=== PATIENT | female | born 1940 | race Caucasian/White ===

== ENCOUNTER → 2016-03-30 | Outpatient (CLI) | payer OTHER ==
[~2016-03-30] MED LIST: ASCO500T3 PO; ASPCH81X PO; BIOT1CAP8 PO; BROM0.07 OPL; CALC500C70 PO; HYZ/10015 PO; MULT-506 PO; OMEG10007 PO; PRED1SUS3 OPL
== END | disposition home or self-care (01) ==
LOC: C.PAPS 09:45
PROVIDERS: ATTEND Obstetrics & Gynecology
DX: Z12.4 Encounter for screening for malignant neoplasm of cervix (principal)

== ENCOUNTER → 2016-05-30 | Day surgery (SDC) | payer OTHER ==
[2016-05-04 11:19] VITALS: Ht 162.6 cm; Wt 62.7 kg
[~2016-05-30] VITALS: Ht 162.6 cm; Wt 62.7 kg
[~2016-05-30] MED LIST changes: +500ML BSS 0.3ML EPI 1:1000PF IRRIG ONE; +ACETAMINOPHEN 325 MG TAB PO PRN; +AMVISC PLUS 0.8ML SYRINGE INT OCU ONE; +ATROPINE SULFATE 0.1 MG/ML 5ML SYR IV PRN; +BSS FLUSH ONE; +EpHEDrine SULFATE INJ 50 MG/ML AMP IV PRN; +EpINEphrine INJ 1MG/ML AMP 1 MG/ML AMP ONE; +LACTATED RINGER'S 1000ML 500 ML IV SCH; +LIDOCAINE 3.5% OPH GEL PER APPLICATION CHARGE ONE; +LIDOCAINE HCL 1% MPF 2 ML VIAL ONE; +MIDAZOLAM HCL 1 MG/ML 2ML VIAL ONE; +OCUCOAT 1 ML SOLN IO ONE; +PHENYLEPHRINE HCL 10% OP SOLN PER DROP CHARGE OPL SCH; +POVIDONE-IODINE OP SOLN 30 ML BTL ONE; +PROPARACAINE 0.5% OP SOLN PER DROP CHARGE OPL SCH; +TOBRAMYCIN/DEXAMETHASONE OPH OINT PER APPLN CHARGE ONE
[2016-05-30] MEDS: PHENYLEPHRINE HCL 2.5% OP SOLN PER DROP CHARGE OPL SCH ×2 (06:33→06:38)
[2016-05-30] MEDS: TROPICAMIDE 1% OP SOLN PER DROP CHARGE OPL SCH ×2 (06:34→06:39)
[2016-05-30] MEDS: CYCLOPENTOLATE HCL 1% OP SOLN PER DROP CHARGE OPL SCH ×2 (06:35→06:40)
[2016-05-30] MEDS: KETOROLAC 0.5% OP SOLN PER DROP CHARGE OPL SCH ×2 (06:36→06:41)
[2016-05-30] MEDS: GATIFLOXACIN OP SOLN PER DROP CHARGE OPL SCH ×2 (06:37→06:47)
--- NOTE | 2016-05-30 07:03 | History & Physical Bridge - [place] ---
H&P Re-Evaluation Bridge Note: I have examined the patient, reviewed the History & Physical and in the interval since the performance of the History & Physical I have noted the following changes of clinical significance: No changes noted
--- NOTE | 2016-05-30 07:29 | Discharge Instructions-SurgCtr ---
Discharge Instructions Date of Service May 30, 2016. Visit Reason for Visit: Cataract Left Eye Discharge Discharge Diagnosis / Problem: cataract Discharge Goals Goal(s): Improve function Activity Recommendations Activity Limitations: per Instructions/Follow-up section Anesthesia . Post Anesthesia Instructions: If you have had General Anesthesia or IV Sedation: * Do not drive today. * Resume driving when surgeon permits. * Do not make important decisions or sign legal documents today. * Call surgeon for: 1. Temperature elevations greater than 101 degrees F. 2. Uncontrollable pain. 3. Excessive bleeding. 4. Persistent nausea and vomiting. 5. Medication intolerance (nausea, vomiting or rash). * For nausea and vomiting use only clear liquids such as: tea, soda, bouillon until nausea subsides, then gradually increase diet as tolerated. * If you have any concerns or questions, call your surgeon's office. If physician is unavailable and it is an emergency, call 911 or go to the nearest emergency room. . Instructions / Follow-Up Instructions / Follow-Up ACTIVITY RECOMMENDATIONS: * No strenuous lifting, jogging or running for 4 days * No swimming or yard work for 1 week. * Limited bending is permitted, such as putting on shoes. RETURN TO SCHOOL/WORK: No work until seen by physician in office. MEDICATIONS: Resume previous medications unless instructed otherwise by your surgeon. This includes eye drops for glaucoma. Zymaxid/Gatifloxacin (osman cap) - one drop every 2 hours until bedtime Nevanac/Ilevro/Prolensa/Ketorolac (eddy cap) - one drop every 4 hours until bedtime Prednisolone (white/pink cap, SHAKE WELL) - one drop every 2 hours until bedtime Starting tomorrow - all 3 drops every 4 hours until seen in the office Optive drops - as needed for discomfort SPECIAL CARE INSTRUCTIONS: * Wear eyeshield when sleeping, for four nights. * You may wear your own glasses or sunglasses while awake. * You may read or watch TV * You may shower and wash your face, but be gentle around the eye and pat dry. * Blurry vision and mild irritation are normal. * Call office if pain is more severe or vision becomes dark at . FOLLOW UP VISIT: Follow-up with Dr Smith tomorrow. Diet Recommendations Home Diet: resume previous diet Procedures Procedures Performed: Left Eye Cataract Phacoemulsification With Intraocular Lens Implant Pending Studies Studies pending at discharge: no Medical Emergencies . Who to Call and When: Medical Emergencies: If at any time you feel your situation is an emergency, please call 911 immediately. . Non-Emergent Contact Non-Emergency issues call your: Rotary Drier Operator . . "Provider Documentation" section prepared by Chinmay Smith.
[2016-05-30 07:30] VITALS: TEMP 36.8
--- NOTE | 2016-05-30 07:30 | [facility] Operative Report ---
Operative Report Date of Service May 30, 2016. Operative Report 1. PREOPERATIVE DIAGNOSIS: Cataract of the left eye. 2. POSTOPERATIVE DIAGNOSIS: Same. 3. PROCEDURE: Phacoemulsification with intraocular lens implantation of the left eye. SURGEON: Dr. Chinmay Smith. ANESTHESIA: Topical Lidocaine gel, 1% Non- Preserved intracameral Lidocaine, and monitored intravenous sedation. INDICATIONS FOR THE PROCEDURE: The patient is a 75 - year-old female with a history of cataract of the left eye causing significant visual impairment. The details of the proposed procedure were explained to the patient who asked appropriate questions and following discussion of all risks, benefits and alternatives agreed to have the procedure done. 4. OPERATION AND FINDINGS: DESCRIPTION OF PROCEDURE: After informed consent was obtained, the patient was brought to the Operating Room at the [facility]. The patient was placed in a supine position and then the left eye was prepped and draped in the usual sterile fashion for intraocular surgery. A drop of topical Lidocaine gel was placed in the operative eye. A wire lid speculum was then placed in the fornices. A corneal paracentesis was then created temporally. The Non-Preserved Lidocaine was then instilled into the anterior chamber. The anterior chamber was then pressurized with viscoelastic. A 2.0 mm clear corneal incision was then created temporally. A cystotome was inserted into the anterior chamber and used to create a tear in the anterior lens capsule. This capsular tear was then used to create a small flap and the flap was dragged in a counterclockwise direction in order to create a continuous curvilinear capsulorrhexis. Hydrodissection was accomplished with balanced salt solution. Phacoemulsification of the lens nucleus was then performed in a standard [id number]-[id number] technique. The phaco time was 25 seconds with an average power of 11 %. The remaining cortical material was removed using irrigation aspiration. The capsular bag was then filled with viscoelastic. A Bausch [employer] Lomb MI60L +15.5 diopters lens was then loaded into the injector and injected into the capsular bag. The remaining viscoelastic was removed with the irrigation aspiration handpiece. The wound was hydrated and then checked and found to be watertight. The intraocular pressure was checked and found to be adequate. The wire lid speculum was removed and the patient's face was cleaned and dried. TobraDex ointment was placed in the inferior fornix. The patient was discharged to the Recovery Room having tolerated the procedure well. There were no complications. The patient will be seen tomorrow in the office for follow-up. I attest to the content of the Intraoperative Record and any orders documented therein. Any exceptions are noted below.
[2016-05-30 07:46] VITALS: BP 173/73; PULSE 70; O2SAT 99
--- NOTE | 2016-05-30 07:48 | Anesthesia Progress Nt - [facility] ---
Anesthesia Post Op Note Date & Time May 30, 2016 at 07:47 Vital Signs Pain Intensity: 0 Vital Signs Past 12 Hours Date Time Temp Pulse Resp B/P Pulse Ox O2 Delivery O2 Flow Rate FiO2 05/30/16 07:30 36.8 72 16 128/78 94 Room Air 05/30/16 06:26 36.9 64 16 154/97 98 Room Air Notes Mental Status: alert / awake / arousable, participated in evaluation Pt Amnestic to Procedure: No Nausea / Vomiting: adequately controlled Pain: adequately controlled Airway Patency, RR, SpO2: stable & adequate BP & HR: stable & adequate Hydration State: stable & adequate Anesthetic Complications: no major complications apparent Non distressing recall as discussed preop
== END | disposition home or self-care (01) ==
LOC: X.SURG 06:20
PROVIDERS: ATTEND Ophthalmology
DX: H26.9 Unspecified cataract (principal); I10 Essential (primary) hypertension; M19.90 Unspecified osteoarthritis, unspecified site; Z68.24 Body mass index [BMI] 24.0-24.9, adult

== ENCOUNTER → 2016-06-20 | Day surgery (SDC) | payer OTHER ==
[2016-06-07 15:08] VITALS: Ht 162.6 cm; Wt 62.7 kg
[~2016-06-20] VITALS: Ht 162.6 cm; Wt 62.7 kg
[~2016-06-20] MED LIST changes: -PHENYLEPHRINE HCL 10% OP SOLN PER DROP CHARGE OPL SCH; -PROPARACAINE 0.5% OP SOLN PER DROP CHARGE OPL SCH; +PROPARACAINE 0.5% OP SOLN PER DROP CHARGE OPR SCH
[2016-06-20] MEDS: PHENYLEPHRINE HCL 2.5% OP SOLN PER DROP CHARGE OPR SCH ×2 (09:41→09:46)
[2016-06-20] MEDS: TROPICAMIDE 1% OP SOLN PER DROP CHARGE OPR SCH ×2 (09:42→09:47)
[2016-06-20] MEDS: CYCLOPENTOLATE HCL 1% OP SOLN PER DROP CHARGE OPR SCH ×2 (09:43→09:48)
[2016-06-20] MEDS: KETOROLAC 0.5% OP SOLN PER DROP CHARGE OPR SCH ×2 (09:44→09:49)
[2016-06-20] MEDS: GATIFLOXACIN OP SOLN PER DROP CHARGE OPR SCH ×2 (09:45→09:55)
--- NOTE | 2016-06-20 10:51 | [facility] Operative Report ---
Operative Report Date of Service June 20, 2016. Operative Report 1. PREOPERATIVE DIAGNOSIS: Cataract of the right eye. 2. POSTOPERATIVE DIAGNOSIS: Same. 3. PROCEDURE: Phacoemulsification with intraocular lens implantation of the right eye. SURGEON: Dr. Chinmay Smith. ANESTHESIA: Topical Lidocaine gel, 1% Non- Preserved intracameral Lidocaine, and monitored intravenous sedation. INDICATIONS FOR THE PROCEDURE: The patient is a 75 - year-old female with a history of cataract of the right eye causing significant visual impairment. The details of the proposed procedure were explained to the patient who asked appropriate questions and following discussion of all risks, benefits and alternatives agreed to have the procedure done. 4. OPERATION AND FINDINGS: DESCRIPTION OF PROCEDURE: After informed consent was obtained, the patient was brought to the Operating Room at the [facility]. The patient was placed in a supine position and then the right eye was prepped and draped in the usual sterile fashion for intraocular surgery. A drop of topical Lidocaine gel was placed in the operative eye. A wire lid speculum was then placed in the fornices. A corneal paracentesis was then created temporally. The Non-Preserved Lidocaine was then instilled into the anterior chamber. The anterior chamber was then pressurized with viscoelastic. A 2.0 mm clear corneal incision was then created temporally. A cystotome was inserted into the anterior chamber and used to create a tear in the anterior lens capsule. This capsular tear was then used to create a small flap and the flap was dragged in a counterclockwise direction in order to create a continuous curvilinear capsulorrhexis. Hydrodissection was accomplished with balanced salt solution. Phacoemulsification of the lens nucleus was then performed in a standard phecpb-oum-zxzkphy technique. The phaco time was 24 seconds with an average power of 10 %. The remaining cortical material was removed using irrigation aspiration. The capsular bag was then filled with viscoelastic. A Bausch & Lomb MI60L +14.5 diopters lens was then loaded into the injector and injected into the capsular bag. The remaining viscoelastic was removed with the irrigation aspiration handpiece. The wound was hydrated and then checked and found to be watertight. The intraocular pressure was checked and found to be adequate. The wire lid speculum was removed and the patient's face was cleaned and dried. TobraDex ointment was placed in the inferior fornix. The patient was discharged to the Recovery Room having tolerated the procedure well. There were no complications. The patient will be seen tomorrow in the office for follow-up. I attest to the content of the Intraoperative Record and any orders documented therein. Any exceptions are noted below.
--- NOTE | 2016-06-20 10:51 | Discharge Instructions-SurgCtr ---
Discharge Instructions Date of Service June 20, 2016. Visit Reason for Visit: Cataract Right Eye Discharge Discharge Diagnosis / Problem: cataract Discharge Goals Goal(s): Improve function Activity Recommendations Activity Limitations: per Instructions/Follow-up section Anesthesia . Post Anesthesia Instructions: If you have had General Anesthesia or IV Sedation: * Do not drive today. * Resume driving when surgeon permits. * Do not make important decisions or sign legal documents today. * Call surgeon for: 1. Temperature elevations greater than 101 degrees F. 2. Uncontrollable pain. 3. Excessive bleeding. 4. Persistent nausea and vomiting. 5. Medication intolerance (nausea, vomiting or rash). * For nausea and vomiting use only clear liquids such as: tea, soda, bouillon until nausea subsides, then gradually increase diet as tolerated. * If you have any concerns or questions, call your surgeon's office. If physician is unavailable and it is an emergency, call 911 or go to the nearest emergency room. . Instructions / Follow-Up Instructions / Follow-Up ACTIVITY RECOMMENDATIONS: * No strenuous lifting, jogging or running for 4 days * No swimming or yard work for 1 week. * Limited bending is permitted, such as putting on shoes. RETURN TO SCHOOL/WORK: No work until seen by physician in office. MEDICATIONS: Resume previous medications unless instructed otherwise by your surgeon. This includes eye drops for glaucoma. Zymaxid/Gatifloxacin (osman cap) - one drop every 2 hours until bedtime Nevanac/Ilevro/Prolensa/Ketorolac (eddy cap) - one drop every 4 hours until bedtime Prednisolone (white/pink cap, SHAKE WELL) - one drop every 2 hours until bedtime Starting tomorrow - all 3 drops every 4 hours until seen in the office Optive drops - as needed for discomfort SPECIAL CARE INSTRUCTIONS: * Wear eyeshield when sleeping, for four nights. * You may wear your own glasses or sunglasses while awake. * You may read or watch TV * You may shower and wash your face, but be gentle around the eye and pat dry. * Blurry vision and mild irritation are normal. * Call office if pain is more severe or vision becomes dark at . FOLLOW UP VISIT: Follow-up with Dr Smith tomorrow. Diet Recommendations Home Diet: resume previous diet Procedures Procedures Performed: Right Eye Cataract Phacoemuslification With Intraocular Lens Implant Pending Studies Studies pending at discharge: no Medical Emergencies . Who to Call and When: Medical Emergencies: If at any time you feel your situation is an emergency, please call 911 immediately. . Non-Emergent Contact Non-Emergency issues call your: Wire Tester . . "Provider Documentation" section prepared by Chinmay Smith. .
[2016-06-20 10:53] VITALS: TEMP 36
[2016-06-20 11:14] VITALS: BP 159/68; PULSE 51; O2SAT 95
--- NOTE | 2016-06-20 11:17 | Anesthesia Progress Nt - [facility] ---
Anesthesia Post Op Note Date & Time June 20, 2016 at 11:16 Vital Signs Pain Intensity: 0 Vital Signs Past 12 Hours Date Time Temp Pulse Resp B/P Pulse Ox O2 Delivery O2 Flow Rate FiO2 06/20/16 10:53 36.0 61 16 145/75 96 Room Air 06/20/16 09:37 37 56 16 188/90 98 Room Air Notes Mental Status: alert / awake / arousable, participated in evaluation Pt Amnestic to Procedure: Yes Nausea / Vomiting: adequately controlled Pain: adequately controlled Airway Patency, RR, SpO2: stable & adequate BP & HR: stable & adequate Hydration State: stable & adequate Anesthetic Complications: no major complications apparent
== END | disposition home or self-care (01) ==
LOC: X.SURG 09:18
PROVIDERS: ATTEND Ophthalmology
DX: H26.9 Unspecified cataract (principal); I10 Essential (primary) hypertension; I34.1 Nonrheumatic mitral (valve) prolapse; Z79.82 Long term (current) use of aspirin

== ENCOUNTER → 2016-07-10 | Outpatient (CLI) | payer OTHER ==
[~2016-07-10] MED LIST changes: -500ML BSS 0.3ML EPI 1:1000PF IRRIG ONE; -ACETAMINOPHEN 325 MG TAB PO PRN; -AMVISC PLUS 0.8ML SYRINGE INT OCU ONE; -ATROPINE SULFATE 0.1 MG/ML 5ML SYR IV PRN; -BSS FLUSH ONE; -EpHEDrine SULFATE INJ 50 MG/ML AMP IV PRN; -EpINEphrine INJ 1MG/ML AMP 1 MG/ML AMP ONE; -LACTATED RINGER'S 1000ML 500 ML IV SCH; -LIDOCAINE 3.5% OPH GEL PER APPLICATION CHARGE ONE; -LIDOCAINE HCL 1% MPF 2 ML VIAL ONE; -MIDAZOLAM HCL 1 MG/ML 2ML VIAL ONE; -OCUCOAT 1 ML SOLN IO ONE; -POVIDONE-IODINE OP SOLN 30 ML BTL ONE; -PROPARACAINE 0.5% OP SOLN PER DROP CHARGE OPR SCH; -TOBRAMYCIN/DEXAMETHASONE OPH OINT PER APPLN CHARGE ONE
--- NOTE | 2016-07-11 07:55 | MAMMOGRAPHY REPORT ---
BILATERAL DIGITAL SCREENING MAMMOGRAM WITH CAD: 07/10/2016 CLINICAL HISTORY: Routine screening. Patient has no complaints. TECHNIQUE: Bilateral CC, MLO and repeat left MLO views were obtained. Current study was also evalua anne marie with a Computer Aided Detection (CAD) system. COMPARISON: Comparison is made to exams dated: 07/09/2015 mammogram, 07/07/2014 mammogram, 07/04/2013 mammogram, 07/03/2012 mammogram, 07/03/2011 mammogram, and 06/23/2010 mammogram - [facility]. BREAST COMPOSITION: There are scattered areas of fibroglandular density in both breasts. FINDINGS: There are scattered benign rim calcifications and mild vascular calcifications in the [place]. No suspicious mass, architectural distortion or cluster of microcalcifications is seen. IMPRESSION: ACR BI-RADS CATEGORY 1: NEGATIVE There is no mammographic evidence of malignancy. A 1 year screening mammogram is recommended. The p atient will receive written notification of the results. Approximately 10% of breast cancers are not detected with mammography. A negative mammographic repor t should not delay biopsy if a clinically suggestive mass is present. Terese Sotelo M.D. ay/:07/10/2016 16:59:52 Manager Assisted Living: Akash KAHN(R)(M), [facility] letter sent: Normal 1/2 BI-RADS Code: ACR BI-RADS Category 1: Negative
== END | disposition home or self-care (01) ==
LOC: C.MAMM 09:53
PROVIDERS: ATTEND Obstetrics & Gynecology
DX: Z12.31 Encounter for screening mammogram for malignant neoplasm of breast (principal)

== ENCOUNTER → 2016-11-01 | Outpatient (CLI) | payer OTHER ==
[2016-11-01 09:52] LABS: HEMATOCRIT 41.6 % (37-47); MEAN CELL VOLUME 96.7 fL (80-100); MEAN CORPUSCULAR HEMOGLOBIN 32.6 pg (25-34); MEAN CORPUSCULAR HGB CONC 33.7 g/dl (32-36); MEAN PLATELET VOLUME 9.6 fL (7.4-10.4); PLATELET COUNT 327 K/uL (130-400); WHITE BLOOD COUNT 6.95 K/uL (4.8-10.8)
[2016-11-01 10:14] LABS: ESTIMATED AVERAGE GLUCOSE 126 mg/dl; HA1C FLAG Normal (Normal)
[2016-11-01 10:18] LABS: ALT/SGPT 22 U/L (12-78); BLOOD UREA NITROGEN 20 mg/dl (7-18); BUN/CREATININE RATIO 23.4 (10-20); CALCIUM 9.8 mg/dl (8.5-10.1); CARBON DIOXIDE 29 mmol/L (21-32); CHLORIDE 108 mmol/L (98-107); CHOLESTEROL 164 mg/dl (0-200); CREATININE 0.86 mg/dl (0.60-1.20); GLUCOSE 93 mg/dl (70-99); POTASSIUM 4.3 mmol/L (3.5-5.1); SODIUM 141 mmol/L (136-145)
[2016-11-01 10:29] LABS: ALKALINE PHOSPHATASE 69 U/L (45-117); AST/SGOT 16 U/L (15-37); CHOLESTEROL/HDL RATIO 2.3; HDL CHOLESTEROL 70 mg/dl; LDL CHOLESTEROL CALCULATED 76 mg/dl; TRIGLYCERIDES 92 mg/dl (0-150); VERY LOW DENSITY LIPOPROT CALC 18 mg/dl
--- NOTE | 2016-11-10 13:48 | CODING QUERY MEDICAL NECESSITY ---
SUPPORTING DIAGNOSIS NEEDED A supporting diagnosis is required for the test/procedure performed on this patient in order for us to be reimbursed by the patient's insurance. Please provide a supporting diagnosis for the following test/procedure listed below next to the test name along with your signature. *If there is no additional diagnosis for this patient that would support the following test/procedure please document that below next to the test/procedure. Test(s)/Procedure(s) that require a supporting diagnosis: * HEMOGLOBIN A1C DIAGNOSIS: Provider Signature: Date: Thank you Leanne Gallegos [employer] Information [employer] Once completed, please kindly fax back to [phone] For questions please call [phone]
== END | disposition home or self-care (01) ==
LOC: C.LAB1850 08:12
PROVIDERS: ATTEND Physician Assistant
DX: I10 Essential (primary) hypertension (principal)

== ENCOUNTER 2017-06-26 16:44 | Emergency (ER) | payer OTHER ==
[~2017-06-26] VITALS: Ht 165.1 cm; Wt 63.6 kg
[2017-06-26 16:47] VITALS: TEMP 36.7; Ht 165.1 cm; Wt 63.6 kg
[2017-06-26] MEDS ORDERED: IBUPROFEN 200 MG TAB PO STA (17:04)
[2017-06-26] MEDS ORDERED: ACETAMINOPHEN 325 MG TAB PO STA (17:04)
[2017-06-26] MEDS ORDERED: LIDOCAINE 1% BUFFERED INJ 5 ML VIAL INFIL ONE (17:15)
[2017-06-26] MEDS ORDERED: DIPHTHERIA/TETANUS/PERTUSSIS 0.5 ML SYR/VIAL IM. ONE (17:15)
--- NOTE | 2017-06-26 17:29 | DIAGNOSTIC IMAGING REPORT ---
L FOREARM 2 VIEWS ROUTINE CLINICAL HISTORY: L forearm pain mid/distal COMPARISON: None. DISCUSSION: No acute fractures or dislocations are visualized. There is dorsal soft tissue swelling. Faint soft tissue calcifications cannot be excluded. Arthritic changes are present the level the first carpal metacarpal joint. IMPRESSION: 1. No acute fractures 2. Soft tissue swelling involving the dorsal soft tissues at the junction of the middle distal one third. Electronically signed by: Tam Huerta M.D. 06/26/2017 5:27 PM Dictated Date/Time: 06/26/2017 5:26 PM
--- NOTE | 2017-06-26 17:31 | EMERGENCY ROOM VISIT NOTE ---
History First contact with patient: 16:54 Chief Complaint: LACERATION/CUT (SUT/DERMABOND) Stated Complaint: LEFT ARM LACERATION Nursing Triage Summary: Patient states "We were loading a mower on the truck with a fork lift. The fork lift came down and hit me on the left forearm." Skin tear noted to the left forearm. Patient takes one baby asa daily. History of Present Illness The patient is a 76 year old female who presents to the Emergency Room with complaints of a laceration to her left forearm. The patient was loading a mower onto a truck with a forklift when the forklift came down on her left forearm. She sustained a laceration to the forearm. She also complains of moderate pain rating it a 5/10. She denies any numbness or tingling into the hand. No other injuries. The bleeding has stopped. She is unsure of her last tetanus shot. She has not taken anything for pain. Review of Systems 6 system review negative. Please see pertinent positives in the history of present illness section. Past Medical/Surgical History Heart disease Hypertension Social History Smoking Status: Never Smoker Marital Status: Current/Historical Medications Scheduled Ascorbic Acid (Vitamin C), 1 TAB PO QAM Aspirin (Aspirin Chewable), 81 MG PO QAM Biotin (Biotin), 1 CAP PO QAM Bromfenac Sodium (Ophth) (Prolensa), 1 DROP OPL DAILY Calcium/Vitamin D (Os-Jason 500 Plus D), 1 TAB PO QAM Fish Oil ([place]-3), 1 CAP PO QAM Hctz/Losartan (Hyzaar 25MG/100MG), 1 TAB PO QAM Multivitamin (Multivitamin), 1 TAB PO QAM Prednisolone Acetate (Ophth) (Pred Forte 1% Oph), 1 DROPS OPL TID Physical Exam Vital Signs Date Time Temp Pulse Resp B/P (MAP) Pulse Ox O2 Delivery O2 Flow Rate FiO2 06/26/17 19:01 70 15 189/88 97 06/26/17 16:47 36.7 82 18 192/97 97 Room Air Physical Exam VITALS: Vitals are noted on the nurse's note and reviewed by myself. Vital signs stable. GENERAL: 76-year-old female, in no acute distress, nondiaphoretic, well- developed well-nourished. SKIN: The skin was warm and dry HEAD: Normocephalic atraumatic. EYES: . Conjunctivae without injection, sclerae without icterus. Extraocular movements intact. NECK: Supple without nuchal rigidity. No JVD. MUSCULOSKELETAL: LUE: There is an approximately 3 cm hematoma noted to the dorsal aspect of the left forearm. There is a 1 cm skin tear that is superficial associated with a hematoma. Closer to the radial aspect of the arm, there is a 2 cm laceration that is gaping with no active bleeding. No deep structures are involved. The wound appears clean. Difficulty with flexion and extension of the left wrist. Radial pulses +2. Capillary refill in the fingers is less than 2 seconds. Sensation in the fingers intact. NEURO: Patient was alert and oriented to person place and time. Normal sensation to touch. No focal neurological deficits. Medical Decision & Procedures ER Provider Diagnostic Interpretation: L forearm xray IMPRESSION: 1. No acute fractures 2. Soft tissue swelling involving the dorsal soft tissues at the junction of the middle distal one third. Electronically signed by: Tam Huerta M.D. 06/26/2017 5:27 PM Dictated Date/Time: 06/26/2017 5:26 PM Medications Administered Medications (Trade) Dose Ordered Sig/Yash Route Start Time Stop Time Status Last Admin Dose Admin Acetaminophen (Tylenol Tab) 650 mg NOW STAT PO 06/26/17 17:04 06/26/17 17:07 DC 06/26/17 17:16 650 MG Ibuprofen (Advil Tab) 400 mg NOW STAT PO 06/26/17 17:04 06/26/17 17:07 DC 06/26/17 17:16 400 MG Lidocaine HCl (Buffered Lidocaine 1% Inj) 20 ml NOW ONCE INFIL 06/26/17 17:15 06/26/17 17:16 DC 06/26/17 17:17 5 ML Diphtheria/ Pertussis/Tetanus Vacc (Adacel Inj) 0.5 ml ONCE ONCE IM. 06/26/17 17:15 06/26/17 17:16 DC 06/26/17 17:17 0.5 ML Procedure Verbal consent was obtained to perform the procedure. Using sterile technique the wound was cleaned with Betadine. The area was sterilely draped. 5 ml of 1 % buffered lidocaine were used to anesthetize the lacerations Once the patient was anesthetized, the wounds were copiously irrigated under pressure with sterile saline. The skin tear on the dorsal aspect of the forearm did not require suturing. It was thoroughly cleansed. The laceration on the more radial aspect of the left forearm required 4 simple interrupted 5-0 ethilon sutures Bacitracin was applied to both wounds. The patient was given a compression bandage ED Course The patient was seen and examined She was given Tylenol for pain She was given an Adacel injection Imaging was performed and reviewed The laceration was prepared. Please see my procedure note. The patient was given a bandage. She tolerated the procedure well. She was also seen and examined with my supervising physician who is in agreement with my plan Discharge instructions were thoroughly reviewed, and the patient was discharged in good condition Medical Decision Differential diagnosis: Laceration, contusion, open fracture, skin tear, wound infection, compartment syndrome This patient is a 76-year-old female presents to the emergency department with 2 wounds to her left forearm after having a forklift come down on her left forearm. She had one laceration that required repair. The other one was superficial and more of a skin tear. Patient had a significant hematoma. Her x -ray was negative for fracture. The wounds were thoroughly cleansed and dressed with bacitracin.. She was given a compression dressing. Her tetanus shot was also updated. She will follow-up with her primary care physician in 2 weeks for suture removal. She was cautioned on signs of infection, for which she will return to the emergency department This chart was completed in part utilizing [employer] Speech Voice Recognition software. Attempts were made to minimize the grammatical errors, random word insertions, pronoun errors and incomplete sentences. Any formal questions or concerns about the content, text or information contained within the body of this dictation should be directly addressed to the provider for clarification. Medication Reconcilliation Current Medication List: was personally reviewed by me Blood Pressure Screening Patient's blood pressure: Elevated blood pressure Blood pressure disposition: Referred to PCP Impression Primary Impression: Laceration Additional Impression: Hematoma Departure Information Dispostion Home / Self-Care Condition GOOD Referrals Blane Pelayo M.D. (PCP) Patient Instructions My [facility] Additional Instructions Please apply ice for 20 minute intervals as much as possible over the next 48 hours. Please keep the compression bandage in place for 24 hours. It is then okay to unbandaged. Please elevate the arm for swelling Keep wound clean. It is okay to gently wash the area with soapy water. Do not submerse it in water for long periods of time such as swimming, going in hot tubs or taking baths until the sutures come out. Do not allow any crusting or dried blood to accumulate on sutures. If this occurs, use a 1:1 solution of hydrogen peroxide/water on a Q-tip to clean the wound. Use an antibiotic ointment for 3-4 days, then let wound dry. Suture removal in 14 days. Return sooner for any signs of infection (increasing redness, swelling, drainage). Ice and elevate for swelling and pain. Ibuprofen 400 mg and Tylenol 500 mg every 6 hrs for pain. Problem Qualifiers
--- NOTE | 2017-06-26 18:05 | EMERGENCY ROOM VISIT NOTE ---
ED Visit Note First contact with patient: 16:54 The patient was seen and examined with Fatemeh Spicer PA-C. I agree with the history, physical and findings. Please see the note for disposition and details.
[2017-06-26 19:01] VITALS: BP 189/88; PULSE 70; O2SAT 97
== END 2017-06-26 19:05 | disposition home or self-care (01) ==
LOC: C.EDB 16:45 → C.EDD 19:05
DX: S51.812A Laceration without foreign body of left forearm, initial encounter (principal); S50.12XA Contusion of left forearm, initial encounter; W24.0XXA Contact with lifting devices, not elsewhere classified, initial encounter; Y93.89 Activity, other specified; Z79.82 Long term (current) use of aspirin; I10 Essential (primary) hypertension; Z79.899 Other long term (current) drug therapy; Z23 Encounter for immunization